=== PATIENT | male | born 1960 | race Two or more races ===

== ENCOUNTER 2017-05-03 23:40 | Emergency (ER) | payer OTHER ==
[2017-05-04 00:08] VITALS: BP 144/92; PULSE 90; TEMP 97.8; BMI 25.1
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
[2017-05-04] MEDS ORDERED: IBUPROFEN 600 MG TABLET (FP) PO ONE ×3 (00:25→00:34)
[2017-05-04] MEDS ORDERED: ACETAMINOPHEN 500 MG TABLET (FP) PO ONE (00:25)
[2017-05-04] MEDS ORDERED: ACETAMINOPHEN 325 MG TABLET (FP) ONE (00:32)
== END 2017-05-04 05:11 | disposition home or self-care (01) ==
LOC: JER 23:40
DX: M54.2 Cervicalgia (principal); M25.552 Pain in left hip; M54.6 Pain in thoracic spine; M54.5 Low back pain; V43.52XA Car driver injured in collision with other type car in traffic accident, initial encounter; W22.11XA Striking against or struck by driver side automobile airbag, initial encounter; Y92.488 Other paved roadways as the place of occurrence of the external cause; Y93.89 Activity, other specified; Y99.8 Other external cause status
CPT/HCPCS: 70450-TC; 71010-TC; 72070-TC; 72100-TC; 72125-TC; 73523-TC; 99281-25

== ENCOUNTER 2018-01-02 06:16 | Day surgery (SDC) | payer OTHER ==
[2018-01-01 17:02] VITALS: BMI 28.1
--- NOTE | 2018-01-01 18:54 | HP ---
DATE OF ADMISSION: 01/02/2018 ADMISSION DIAGNOSIS: Chronic sinusitis, deviated septum, and turbinate hypertrophy. HISTORY OF PRESENT ILLNESS: This 57-year-old male has had longstanding nasal and sinus problems which have failed to improve with appropriate medical therapy. He has had facial pain and headache, nasal drainage, and sinus pain. He has been having daily frontal headaches. He has been treated with numerous antibiotics. Polyps are present. CT scan demonstrates pansinusitis, and exam also shows deviation of the septum as well as inferior turbinate hypertrophy, is now admitted for endoscopic sinus surgery and nasal septoplasty and inferior turbinate surgery. PAST MEDICAL HISTORY: Primary medical doctor is Dr. Fletcher Singh. Patient has had previous shoulder surgery on the left side as well as colon procedure. No anesthesia problems. Bleeding history is negative. Family history is negative for bleeding or anesthesia problems. 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 He has also had sinus problems. MEDICATION: Present medications include simvastatin as well as fluticasone. ALLERGIES TO MEDICATIONS: None known. SOCIAL HISTORY: He does not smoke . Patient does have anosmia as well as sinus pressure. PHYSICAL EXAMINATION: GENERAL: Patient is a well developed male in no distress. HEENT: Head is normal. Eyes are clear. Ears are unremarkable. Nose has an intact but deviated septum. Inferior turbinates are enlarged. Nasal endoscopy shows polyps bilaterally particularly on the left side involving the middle meatus and superior meatus. CT scan of the paranasal sinus performed at [facility] on August 15, 2017, demonstrates chronic sinusitis with obstruction of the frontoethmoid and sphenoethmoid recesses. There is also iinferior turbinate hypertrophy and deviation of the septum. PLAN: Endoscopic sinus surgery, nasal septoplasty, inferior turbinate submucous resection. INFORMED CONSENT: Patient understands the indications, alternatives, nature of risks and benefits of proposed surgery, potential complications including but not limited to anesthesia, bleeding, infection, recurrence, numbness, hole in the septum, persistent anosmia, eye injury, or brain injury discussed. He understands and accepts these risks and wished to proceed with surgery. Questions answered fully. LETTY PEREZ M.D. JANEE/[id number] [facility] HOSPITALTherese
[2018-01-02] MEDS ORDERED: PROPOFOL 20 ML ONE ×2 (07:21)
[2018-01-02] MEDS ORDERED: LIDOCAINE HCL/PF 2% SDV 5ML VIAL ONE (07:21)
[2018-01-02] MEDS ORDERED: ceFAZolin SODIUM 1 GM VIAL ONE (07:21)
[2018-01-02] MEDS ORDERED: MIDAZOLAM HCL 2 MG/2 ML SINGLE DOSE VIAL ONE ×2 (07:22)
[2018-01-02] MEDS ORDERED: SUCCINYLCHOLINE CHLORIDE 200 MG/10 ML VIAL ONE (07:22)
[2018-01-02] MEDS ORDERED: ROCURONIUM BROMIDE 50 MG/5 ML VIAL ONE (07:22)
[2018-01-02] MEDS ORDERED: LIDOCAINE 1%/EPI 1:100000 (20 ML MULTI DOSE VIAL) ONE (07:29)
[2018-01-02] MEDS ORDERED: BACITRACIN 15 GM TUBE TOPICAL OINTMENT ONE (07:29)
[2018-01-02] MEDS ORDERED: ACETAMINOPHEN INJECTION 100 ML IVPB ONE (07:38)
--- NOTE | 2018-01-02 07:54 | HP ---
History & Physical Update - History History: No Change - Physical Physical: No Change - Assessment Assessment: No Change - Plan Plan: No Change
[2018-01-02] MEDS ORDERED: ceFAZolin SODIUM 1 GM VIAL IVPB ONE (08:19)
[2018-01-02] MEDS ORDERED: ePHEDrine SULFATE 50 MG/1 ML AMPULE ONE (08:35)
[2018-01-02] MEDS ORDERED: PHENYLEPHRINE HCL 10 MG/1 ML SINGLE DOSE VIAL ONE (08:36)
[2018-01-02] MEDS ORDERED: COCAINE HCL 4% TOPICAL SOLUTION 4 ML BOTTLE TP ONE (08:39)
[2018-01-02] MEDS ORDERED: LIDOCAINE 1%/EPI 1:100000 (20 ML MULTI DOSE VIAL) IJ ONE ×2 (08:40→08:47)
[2018-01-02] MEDS ORDERED: GLYCOPYRROLATE 0.2 MG/1 ML VIAL ONE (09:10)
[2018-01-02] MEDS ORDERED: NEOSTIGMINE METHYLSULFATE 0.5 MG/ML - 10 ML MDV ONE (09:10)
[2018-01-02] MEDS ORDERED: ACETAMINOPHEN 325 MG TABLET (FP) PO PRN (10:33)
[2018-01-02] MEDS ORDERED: oxyCODONE HCL 5 MG TABLET PO PRN (10:33)
--- NOTE | 2018-01-02 10:33 | OP ---
Operative Note - Note: Operative Date: 01/02/18 ([id number]) Pre-Operative Diagnosis: chronic pansinusitis, deviated septum, inferior turbinate hypertrophy Operation: bilateral endoscopic: 1) ethmoidectomy, anterior and posterior, 2) maxillary antrostomy with removal of tissue right, 3) frontal sinus exploration , 4) sphenoidotomy, nasal septoplasty, inferior turbinate SMR right, outfracture and cauterization left, navigation Findings: chronic sinusitis, deviated septum to left, inferior turbinate hypertrophy right greater than left Implants: none Post-Operative Diagnosis: Same as Pre-op Surgeon: Martinez Adames Anesthesiologist/CARDIAC CARE UNIT NURSE: Ramiro Hall Anesthesia: General Specimens Removed: left ethmoid, right ethmoid, right superior meatus, right inferior turbinate, nasal septum Estimated Blood Loss (mls): 30 Blood Volume Replaced (mls): 0 Operative Report Dictated: Yes
[2018-01-02] MEDS ORDERED: LACTATED RINGERS SOLUTION 1,000 ML IV SCH ×2 (10:45→11:00)
[2018-01-02] MEDS ORDERED: ONDANSETRON 4 MG/2 ML VIAL IVPUSH PRN (10:58)
[2018-01-02 15:12] VITALS: BP 124/76; PULSE 68; TEMP 98.2
--- NOTE | 2018-01-04 13:28 | PATH ---
Surgical Pathology Report Patient Name: TY ELLIS [facility]. Rec. #: [id number] /Age/Gender: 1960 (Age: 57) / M Account: [id number] Location: [facility] SURGICAL Taken: 01/02/2018 Received: 01/02/2018 Reported: 01/04/2018 Physicians: Martinez Adames M.D. Specimen(s) Received A: LEFT ETHMOID TISSUE B: RIGHT ETHMOID TISSUE C: RIGHT SUPERIOR MEATUS D: INTERIOR TURBINATE TISSUE E: NASAL SEPTUM TISSUE Clinical History Deviated septum Final Diagnosis A. LEFT ETHMOID SINUS, CURETTING: CHRONIC SINUSITIS, AND ADMIXED FRAGMENTS OF BONE. B. RIGHT ETHMOID SINUS, CURETTING: CHRONIC SINUSITIS, AND ADMIXED FRAGMENTS OF BONE C. RIGHT SUPERIOR MEATUS, CURETTING: CHRONIC SINUSITIS D. INFERIOR TURBINATE, CURETTING: CHRONIC SINUSITIS, AND ADMIXED FRAGMENTS OF BONE E. NASAL SEPTUM, PARTIAL EXCISION: BONE AND CARTILAGE CONSISTENT WITH PORTIONS OF NASAL SEPTUM. Electronically Signed Oleksandr Chanel M.D. Gross Description A. Received in formalin labeled "left ethmoid tissue," is a 2.0 x 1.9 x 0.3 cm aggregate of carroll fragments of soft tissue, cartilage and possible bone. The specimen is entirely submitted in one cassette, following decalcification. B. Received in formalin labeled "right ethmoid tissue," is a 1.8 x 1.6 x 0.3 cm aggregate of carroll fragments of soft tissue, cartilage and possible bone. The specimen is entirely submitted in one cassette, following decalcification. C. Received in formalin labeled "right superior meatus," are 2 carroll fragments of soft tissue and possible cartilage measuring 0.6 and 0.7 cm in greatest dimension. The specimens are submitted in toto in one cassette, following decalcification. D. Received in formalin labeled "inferior turbinate," is a 1.2 x 1.0 x 0.2 cm aggregate of carroll fragments of cartilage and possible bone. The specimen is submitted in toto in one cassette, following decalcification. E. Received in formalin labeled "nasal septum tissue," is a 1.7 x 1.5 x 0.3 cm aggregate of carroll fragments of cartilage and possible bone. A airport representative portion is submitted in one cassette, following decalcification. 01/03/2018 [facility]01/03/2018
--- NOTE | 2018-01-07 12:22 | OP ---
DATE OF OPERATION: 01/02/2018 PREOPERATIVE DIAGNOSES: Chronic pansinusitis, deviated septum, inferior turbinate hypertrophy. POSTOPERATIVE DIAGNOSES: Chronic pansinusitis, deviated septum, inferior turbinate hypertrophy. PROCEDURE: Bilateral endoscopic ethmoidectomy anterior and posterior, bilateral endoscopic maxillary antrostomy with removal of tissue, bilateral endoscopic frontal sinus exploration, bilateral endoscopic sphenoidotomy, nasal septoplasty, submucous resection of right inferior turbinate, therapeutic outfracture of inferior turbinates, image guidance. SURGEON: Letty Adames MD ANESTHESIOLOGIST: Ramiro Hall MD ANESTHESIA: General via endotracheal tube. INDICATIONS: This 57-year-old male has had a longstanding nasal and sinus problems, which have failed to improve with appropriate medical therapy. He has had sinus pain and pressure, congestion, poor sense of smell, and drainage. This has persisted after multiple courses of antibiotics and nasal steroid sprays. On exam, he has a deviated septum to the left. Significant inferior turbinate hypertrophy is present, particularly on the right side. CT scan of the paranasal sinuses performed at [facility] demonstrates chronic pansinusitis with moderate mucoperiosteal thickening in the ethmoid sinuses, a cyst at the right maxillary sinus base, and thickening and sinus outflow obstruction of the frontal and sphenoid sinuses. Significant deviation of the septum to the left is present, and significant right inferior turbinate hypertrophy is present. He is now brought to surgery for treatment. FINDINGS: Chronic sinusitis, deviated septum to the left bony and cartilaginous inferior turbinate hypertrophy bony and soft tissue. DESCRIPTION OF PROCEDURE: The patient was brought to the operating room and placed on the operating table in supine position. General endotracheal anesthesia was induced to a satisfactory level. He was prepped and draped in the usual fashion for surgery. The nose was prepped with lidocaine 1% and epinephrine 1:100,000 infiltrated to the nasal septum and cocaine 4% pledgets in the nose. CT scan data was used with the [employer] Image Guidance System. The patient was registered, and this system was used intermittently throughout the case to help with anatomic location and guide dissection. The pledgets were removed. Nasal endoscopy was performed with a 0-degree telescope. The above findings were noted. Pus polyps were found in the middle meatus as well as the sphenoid ethmoid recesses. Additional lidocaine was epinephrine was infiltrated in the middle turbinates and the lateral anterior mccarthy. Cocaine 4% was placed in the medial meatus. The nasopharynx was unremarkable. First, attention was turned toward the left paranasal sinuses. The uncinate process was removed opening the infundibulum. Anterior and posterior ethmoidectomy were performed using the ethmoid forceps and Zomed microdebrider. The lamina papyracea and the fovea ethmoidalis were preserved. The natural ostium of the maxillary sinus was enlarged. There was no irreversible disease. The sphenoid sinus was opened on the left side, and there was no pus or polyp. Finally, the frontal ethmoid recess was dissected with the giraffe forceps and the 70-degree telescope. Polypoid tissue was removed. The frontal sinus ostium was identified and confirmed with image guidance. Attention was then turned toward the right paranasal sinuses. The uncinate process and polypoid tissue from the middle meatus was removed. Additional polypoid tissue was removed from the right superior meatus. The anterior and posterior ethmoidectomy were performed with the forceps and Zomed microdebrider, again, preserving the lamina papyracea and the fovea ethmoidalis. The right sphenoid sinus was opened and the ostium enlarged. The right frontal recess was then dissected using the 70-degree telescope, and with giraffe forceps, the frontal sinus ostium was identified and confirmed with image guidance. Finally, the right maxillary sinus was enlarged both the accessory ostium and the natural ostium. Giraffe forceps were used to remove tissue from the base cyst. After completion of this portion of the procedure, the sinuses were opened, and hemostasis was excellent. Attention was then turned toward the neck, the nasal septum. A right septal incision was created, and a right mucoperichondrial flap was elevated. The bony cartilaginous junction was identified and , and bilateral mucoperiosteal flaps were elevated. An inferior strip of cartilage was excised. Obstructing maxillary crest was also removed with the osteotome. The superior attachment of the cartilage to the perpendicular plane of the ethmoid was also , and obstructing bony elements were removed. The cartilage was swung into a more midline position. Inferiorly, the significant projecting spur to the left was addressed. Additional fragments of cartilage and bone were placed in the pocket, and the septal incision was closed with interrupted 4-0 chromic. A [id number] quilting suture was also placed. Finally, attention was turned toward the inferior turbinates. The right inferior turbinate was infiltrated with lidocaine with epinephrine. Submucous resection of the right inferior turbinate bone was performed. Submucosal cauterization was performed, and therapeutic outfracture of the more posterior aspect was performed. On the left side, there was minimal bony obstruction; therefore, therapeutic outfracture was performed, and mural cauterization was performed in an island fashion with the suction cautery device. Final inspection demonstrated improved nasal airways bilaterally as well as dry and open sinuses. Nasopore dressing was placed within each ethmoid cavity. Folded Telfa gauze was placed inferiorly coated with antibiotic ointment and joined with a silk suture anteriorly. The patient tolerated the procedure well. He was then awakened from general anesthesia and transferred to the PACU in stable condition. Estimated blood loss was 30 mL. He received crystalloid during the procedure. Specimens included right and left ethmoid tissue, right superior meatus, and maxillary sinus tissue, nasal septal tissue, and inferior turbinate tissue. There were no complications. LETTY ADAMES M.D. [id number]
== END 2018-01-02 14:25 | disposition home or self-care (01) ==
LOC: JASU-SURG 06:16
PROVIDERS: ATTEND Otolaryngology
PROC: 09TU8ZZ Resection of Right Ethmoid Sinus, Via Natural or Artificial Opening Endoscopic (ICD-10-PCS; 2018-01-02)
PROC: 099R8ZZ Drainage of Left Maxillary Sinus, Via Natural or Artificial Opening Endoscopic (ICD-10-PCS; 2018-01-02)
PROC: 099Q8ZZ Drainage of Right Maxillary Sinus, Via Natural or Artificial Opening Endoscopic (ICD-10-PCS; 2018-01-02)
PROC: 09CX8ZZ Extirpation of Matter from Left Sphenoid Sinus, Via Natural or Artificial Opening Endoscopic (ICD-10-PCS; 2018-01-02)
PROC: 09CW8ZZ Extirpation of Matter from Right Sphenoid Sinus, Via Natural or Artificial Opening Endoscopic (ICD-10-PCS; 2018-01-02)
PROC: 09SM0ZZ Reposition Nasal Septum, Open Approach (ICD-10-PCS; 2018-01-02)
PROC: 09SL0ZZ Reposition Nasal Turbinate, Open Approach (ICD-10-PCS; 2018-01-02)
PROC: 09TV8ZZ Resection of Left Ethmoid Sinus, Via Natural or Artificial Opening Endoscopic (ICD-10-PCS; principal; 2018-01-02 08:00)
DX: J34.2 Deviated nasal septum (principal); J32.4 Chronic pansinusitis; J34.3 Hypertrophy of nasal turbinates
CPT/HCPCS: 88302-TC; 88304-TC; 88311-TC; 94760; J0131

== ENCOUNTER 2019-06-12 18:40 | Emergency (ER) | payer OTHER ==
--- NOTE | 2019-06-12 18:57 | PDOC ---
Rapid Medical Evaluation Chief Complaint: Cold Symptoms Time Seen by Provider: 06/12/19 18:51 Medical Evaluation: Allergies Allergy/AdvReac Type Severity Reaction Status Date / Time No Known Allergies Allergy Verified 01/01/18 16:46 06/12/19 18:52 I have performed a brief in-person evaluation of this patient. The patient presents with a chief complaint of:persistant cough / fevers/ weight loss, completing Tamiflu today. Pertinent physical exam findings: pale/ mild lethargy/ breath sounds coarse with dim in right Lower lobe I have ordered the following: Cxr The patient will proceed to the ED for further evaluation. 06/12/19 18:55 06/12/19 18:56 Discharge Disposition - Diagnosis Cough - Discharge Dispostion Condition at time of disposition: Stable - Referrals - Patient Instructions - Post Discharge Activity
[2019-06-12 19:01] VITALS: BP 128/78; PULSE 88; TEMP 98.7; BMI 28.2
--- NOTE | 2019-06-12 20:03 | PDOC ---
History of Present Illness - General Chief Complaint: Cold Symptoms Stated Complaint: COLD SYMPTOMS Time Seen by Provider: 06/12/19 18:51 History Source: Patient - History of Present Illness Initial Comments: 06/12/19 20:35 Chief complaint: Flulike symptoms Patient 58-year-old male with history of colon cancer, not under any treatment who states that in May, the middle of the month he had cough, went to his doctor and through his paperwork and review of computer figured out he was put on Zithromax. He then saw ENT who had sputum test which showed bacteria and he was on Cefdinir. Patient was feeling better and then on Sunday he started feeling that he was getting sick again with a runny nose and a cough. Went to see his doctor on Sunday who put him on Tamiflu, Pepto-Bismol because he was having some diarrhea and Tessalon Perles. Patient came to the ER because he was not feeling better. Patient had one episode of diarrhea this morning. Patient has no abdominal pain or vomiting. Patient has not been taking Tylenol or Motrin. Patient is afebrile here GENERAL/CONSTITUTIONAL: No fever, weakness. dizziness HEAD, EYES, EARS, NOSE AND THROAT: No change in vision. No ear pain or discharge. No sore throat. CARDIOVASCULAR: No chest pain RESPIRATORY: No shortness of breath or cough GASTROINTESTINAL: No pain, nausea, vomiting, +diarrhea GENITOURINARY: No dysuria MUSCULOSKELETAL: No neck or back pain SKIN: No rash NEUROLOGIC: No headache, vertigo, loss of consciousness, or loss of sensation. GENERAL: The patient is awake, alert, and fully oriented, in no acute distress. HEAD: Normal with no signs of trauma. EYES: Pupils equal, round and reactive to light, sclera anicteric, conjunctiva clear. ENT: pharynx: no erythema, no exudate, uvula midline NECK: supple CHEST: clear, nontender, rr ABD: soft, nontender BACK: no tenderness or signs of injury EXTREMITIES: Normal range of motion, no edema. NEUROLOGICAL: Normal speech, normal gait. SKIN: Warm, Dry Past History - Past Medical History Allergies/Adverse Reactions: Allergies Allergy/AdvReac Type Severity Reaction Status Date / Time No Known Allergies Allergy Verified 01/01/18 16:46 Home Medications: Ambulatory Orders [place]-3/Dha/Epa/Fish Oil [Fish Oil 500 mg Softgel] 1 each PO DAILY 01/01/18 Anemia: No Asthma: No Cancer: Yes (SKIN; COLON) Cardiac Disorders: No CVA: No COPD: No CHF: No Dementia: No Diabetes: No GI Disorders: No Disorders: No HTN: No Hypercholesterolemia: No Liver Disease: No Seizures: No Thyroid Disease: No - Immunization History Immunization Up to Date: No - Psycho Social/Smoking Cessation Hx Smoking Status: No Smoking History: Never smoked Have you smoked in the past 12 months: No Number of Cigarettes Smoked Daily: 0 Information on smoking cessation initiated: No Hx Alcohol Use: No Drug/Substance Use Hx: No Substance Use Type: None Hx Substance Use Treatment: No *Physical Exam - Vital Signs Last Vital Signs Temp Pulse Resp BP Pulse Ox 98.7 F 88 18 128/78 95 06/12/19 18:51 06/12/19 18:51 06/12/19 18:51 06/12/19 18:51 06/12/19 18:51 Medical Decision Making - Medical Decision Making 06/12/19 20:28 Patient phone number is [phone] 58-year-old male with history of colon cancer, no longer on treatment with upper respiratory symptoms since Sunday after having illness in May and was on Zithromax and Cefdinir. Patient saw his doctor 2 days ago, was put on Tamiflu without being tested for the flu, Tessalon Perles and Pepto-Bismol for diarrhea. No abdominal pain. Patient did not take any Tylenol or Motrin. Patient is getting a chest x-ray. Will swab for the flu, give Tylenol and reassess. Patient is eating some and drinking. Patient does not appear acutely ill Chest x-ray is negative, patient is not having diarrhea now, unlikely C. difficile. Also has runny nose and cough that has gotten worse. Will call patient with flu results. He will continue to take Tamiflu and meds that his doctor gave him. He needs close follow-up. He will return if he vomits or gets sicker. He was instructed in the use of antipyretics as he was not taking any although his he is afebrile here he states he has been having chills on and off. Discussed issues, findings, results, applicable medications and treatments and follow-up. All these were understood and all questions were answered 06/12/19 21:54 Discharge - Discharge Information Problems reviewed: Yes Clinical Impression/Diagnosis: Flu-like symptoms Condition: Stable Disposition: HOME - Admission No - Follow up/Referral Referrals: Fletcher Singh MD [Primary Care Provider] - - Patient Discharge Instructions Patient Printed Discharge Instructions: Diarrhea, DI for Viral Upper Respiratory Infection -- Adult Additional Instructions: Drink 2-3 L of water daily Take Tylenol 650 mg every 4 hours or Motrin 600 mg every 6 hours for fever and pain If you continue to have watery diarrhea, you need to be reevaluated to make sure you do not have an infection called C. difficile from the antibiotics. For the diarrhea you can continue the Pepto-Bismol for another 1 to 2 days, follow a brat diet which is bananas, rice, applesauce and toast Return to the nearest ER if short of breath, unable to swallow, vomiting or feeling sicker Followup with your doctor in one to 2 days - Post Discharge Activity
[2019-06-12] MEDS ORDERED: ACETAMINOPHEN 325 MG TABLET (FP) PO ONE (20:17)
[2019-06-12] MEDS ORDERED: ACETAMINOPHEN 325 MG TABLET (FP) ONE (20:21)
== END 2019-06-12 21:28 | disposition home or self-care (01) ==
LOC: JERFT 18:40
DX: J11.1 Influenza due to unidentified influenza virus with other respiratory manifestations (principal); Z85.038 Personal history of other malignant neoplasm of large intestine; Z85.828 Personal history of other malignant neoplasm of skin
CPT/HCPCS: 71046-TC-FY; 87804; 99282-25

== ENCOUNTER 2020-07-21 05:28 | Day surgery (SDC) | payer OTHER ==
[2020-07-20 14:12] VITALS: BMI 29.5
[~2020-07-21 05:28] MED LIST: ACETAMINOPHEN 325 MG TABLET (FP) PO PRN; TROPICAMIDE 1% OPHTH SOLN 15 ML BOTTLE OP SCH
[2020-07-21] MEDS ORDERED: CHONDROITIN SU A/HYALUR SOD 1 KIT ONE (07:18)
[2020-07-21] MEDS ORDERED: TETRACAINE 0.5% OPHTH SOLN 2 ML BOTTLE ONE (07:18)
[2020-07-21] MEDS ORDERED: POVIDONE-IODINE 5% OPHTHALMIC PREP 30 ML SOLUTION ONE (07:18)
[2020-07-21] MEDS ORDERED: EPINEPHrine/PF 1 MG/1 ML (1:1,000) AMPULE ONE (07:25)
[2020-07-21] MEDS ORDERED: LIDOCAINE HCL/PF 1% SDV 5ML VIAL ONE (07:25)
[2020-07-21] MEDS ORDERED: KETOROLAC TROMETHAMINE 0.5% EYE DROP 1 DROP DROPS ONE (08:30)
[2020-07-21] MEDS ORDERED: CYCLOPENTOLATE HCL 1% OPHTH SOLN 2 ML BOTTLE ONE (08:30)
[2020-07-21] MEDS ORDERED: OFLOXACIN 0.3% OPHTHALMIC SOLUTION 5 ML BOTTLE ONE (08:30)
[2020-07-21] MEDS ORDERED: PHENYLEPHRINE 2.5% OPTHALMIC DROP BOTTLE ONE (08:31)
[2020-07-21] MEDS: KETOROLAC TROMETHAMINE 0.5% EYE DROP 1 DROP DROPS OP SCH ×3 (09:00→09:10)
[2020-07-21] MEDS: OFLOXACIN 0.3% OPHTHALMIC SOLUTION 5 ML BOTTLE OP SCH ×3 (09:00→09:10)
[2020-07-21] MEDS: TROPICAMIDE 1% OPHTH SOLN 15 ML BOTTLE ONE ×3 (09:00→09:10)
[2020-07-21] MEDS: CYCLOPENTOLATE HCL 1% OPHTH SOLN 2 ML BOTTLE OP SCH ×3 (09:00→09:10)
[2020-07-21] MEDS: PHENYLEPHRINE 2.5% OPHTH SOLN 15 ML BOTTLE OP SCH ×3 (09:00→09:10)
[2020-07-21] MEDS ORDERED: TETRACAINE 0.5% OPHTH SOLN 2 ML BOTTLE TP ONE (10:24)
[2020-07-21] MEDS ORDERED: MIDAZOLAM HCL 2 MG/2 ML SINGLE DOSE VIAL ONE (10:24)
[2020-07-21] MEDS ORDERED: POVIDONE-IODINE 5% OPHTHALMIC PREP 30 ML SOLUTION OD ONE (10:27)
[2020-07-21] MEDS ORDERED: BSS (NA/CA/MG/K) BALANCED SALT SOLUTION OPHTH SOLN 15 ML BOTTLE OD ONE (10:31)
[2020-07-21] MEDS ORDERED: LIDOCAINE HCL 1% PRESERVATIVE FREE - 30ML VIAL IO ONE (10:34)
[2020-07-21] MEDS ORDERED: CHONDROITIN SU A/HYALUR SOD 1 KIT IO ONE (10:34)
[2020-07-21] MEDS ORDERED: EPINEPHrine/PF 1 MG/1 ML (1:1,000) AMPULE SQ ONE (10:41)
[2020-07-21 11:44] VITALS: BP 129/89; PULSE 60; TEMP 98.1
== END 2020-07-21 11:35 | disposition home or self-care (01) ==
LOC: JASU-SURG 05:28
PROVIDERS: ATTEND Ophthalmology
PROC: 08RJ3JZ Replacement of Right Lens with Synthetic Substitute, Percutaneous Approach (ICD-10-PCS; principal; 2020-07-21 10:00)
DX: H26.9 Unspecified cataract (principal)

== ENCOUNTER 2020-08-11 04:29 | Day surgery (SDC) | payer OTHER ==
[2020-08-06 16:47] VITALS: BMI 30.8
[~2020-08-11 04:29] MED LIST changes: -TROPICAMIDE 1% OPHTH SOLN 15 ML BOTTLE OP SCH
[2020-08-11] MEDS ORDERED: POVIDONE-IODINE 5% OPHTHALMIC PREP 30 ML SOLUTION ONE (07:29)
[2020-08-11] MEDS ORDERED: CHONDROITIN SU A/HYALUR SOD 1 KIT ONE (07:29)
[2020-08-11] MEDS ORDERED: LIDOCAINE HCL/PF 1% SDV 5ML VIAL ONE (07:29)
[2020-08-11] MEDS ORDERED: MIDAZOLAM HCL 2 MG/2 ML SINGLE DOSE VIAL ONE (08:37)
[2020-08-11] MEDS ORDERED: CYCLOPENTOLATE HCL 1% OPHTH SOLN 2 ML BOTTLE ONE (08:39)
[2020-08-11] MEDS ORDERED: OFLOXACIN 0.3% OPHTHALMIC SOLUTION 5 ML BOTTLE ONE (08:39)
[2020-08-11] MEDS ORDERED: PHENYLEPHRINE 2.5% OPTHALMIC DROP BOTTLE ONE (08:39)
[2020-08-11] MEDS ORDERED: KETOROLAC TROMETHAMINE 0.5% EYE DROP 1 DROP DROPS ONE (08:39)
[2020-08-11] MEDS ORDERED: TROPICAMIDE 1% OPHTH SOLN 15 ML BOTTLE ONE (08:39)
[2020-08-11] MEDS: CYCLOPENTOLATE HCL 1% OPHTH SOLN 2 ML BOTTLE OP SCH ×3 (08:45→08:55)
[2020-08-11] MEDS: PHENYLEPHRINE 2.5% OPHTH SOLN 15 ML BOTTLE OP SCH ×3 (08:45→08:55)
[2020-08-11] MEDS: TROPICAMIDE 1% OPHTH SOLN 15 ML BOTTLE OP SCH ×3 (08:45→08:55)
[2020-08-11] MEDS: KETOROLAC TROMETHAMINE 0.5% EYE DROP 1 DROP DROPS OP SCH ×3 (08:45→08:55)
[2020-08-11] MEDS: OFLOXACIN 0.3% OPHTHALMIC SOLUTION 5 ML BOTTLE OP SCH ×3 (08:45→08:55)
[2020-08-11] MEDS ORDERED: BSS (NA/CA/MG/K) BALANCED SALT SOLUTION OPHTH SOLN 15 ML BOTTLE OS ONE ×2 (10:04→10:12)
[2020-08-11] MEDS ORDERED: TETRACAINE 0.5% OPHTH SOLN 2 ML BOTTLE OS ONE (10:04)
[2020-08-11] MEDS ORDERED: POVIDONE-IODINE 5% OPHTHALMIC PREP 30 ML SOLUTION OS ONE (10:04)
[2020-08-11] MEDS ORDERED: EPINEPHrine/PF 1 MG/1 ML (1:1,000) AMPULE SQ ONE ×2 (10:08→10:17)
[2020-08-11] MEDS ORDERED: CHONDROITIN SU A/HYALUR SOD 1 KIT IO ONE ×2 (10:08→10:13)
[2020-08-11] MEDS ORDERED: LIDOCAINE HCL 1% PRESERVATIVE FREE - 30ML VIAL IO ONE ×2 (10:08→10:13)
[2020-08-11 11:09] VITALS: BP 140/88; PULSE 62; TEMP 97.8
[2020-08-11] MEDS ORDERED: ACETAMINOPHEN 325 MG TABLET (FP) PO PRN (11:50)
[2020-08-11] MEDS ORDERED: ONDANSETRON 4 MG/2 ML VIAL IVPUSH PRN (11:50)
[2020-08-11] MEDS ORDERED: LACTATED RINGERS SOLUTION 1,000 ML IV SCH (12:00)
== END 2020-08-11 10:12 | disposition home or self-care (01) ==
LOC: JASU-SURG 04:29
PROVIDERS: ATTEND Ophthalmology
PROC: 08RK3JZ Replacement of Left Lens with Synthetic Substitute, Percutaneous Approach (ICD-10-PCS; principal; 2020-08-11 10:00)
DX: H26.9 Unspecified cataract (principal)